=== PATIENT | female | born 2000 | race American Indian/Alaskan Native ===

== ENCOUNTER 2022-05-18 09:05 | Emergency (ER) | payer MEDICAID ==
[2022-05-18 09:35] VITALS: BP 106/67
--- NOTE | 2022-05-18 11:14 | Emergency Department Report ---
Minor Respiratory - HPI Chief Complaint: Sore Throat Stated Complaint: SORE THROAT/EAR PAIN Time Seen by Provider: 05/18/22 11:10 Duration: 2 Days Pain Location: Throat, Ear Severity: mild Minor Respiratory: Yes Sore Throat, Yes Able to Tolerate Fluids, Yes Ear Pain, Yes Sick Contacts, No Rhinorrhea, No Cough, No Hemoptysis, No Chest Pain, No Shortness of Breath, No Fever Other History: Patient is a 22-year-old female that comes to the ER complaining of right ear pain and sore throat for 3 days. She is also requesting routine chlamydia testing. She has no symptoms. No discharge. No dysuria. Normal vital signs. No abdominal pain. No back pain ED Review of Systems ROS: Stated complaint: SORE THROAT/EAR PAIN Other details as noted in HPI Comment: All other systems reviewed and negative ED Past Medical Hx - Past Medical History Previous Medical History?: No - Surgical History Past Surgical History?: No - Family History Family history: no significant - Social History Smoking Status: Never Smoker Substance Use Type: None - Medications Home Medications: Home Medications Medication Instructions Recorded Confirmed Last Taken Type Amoxicillin [Trimox CAP] 500 mg PO BID #20 capsule 05/18/22 Unknown Rx Minor Respiratory Exam - Exam General: Vital signs noted. No distress. Alert and acting appropriately. HEENT: Yes Pharyngeal Erythema, Yes Moist Mucous Membranes, No Pharyngeal Exudates, No Rhinorrhea, No Conjuctival Injection, No Frontal Tenderness, No Maxillary Tenderness Ear: Right TM Erythema, Neither EAC Pain, Neither EAC Discharge Neck: Yes Supple, No Adenopathy Lungs: Yes Good Air Exchange, No Wheezes, No Ronchi, No Stridor, No Cough, No Labored Respirations, No Retractions, No Use of Accessory Muscles, No Other Abnormal Lung Sounds Heart: Yes Regular, No Murmur Abdomen: Yes Normal Bowel Sounds, No Tenderness, No Peritoneal Signs Skin: No Rash, No Edema Neurologic: Alert and oriented, no deficits. Musculoskeletal: Unremarkable. ED Course Vital Signs 05/18/22 09:33 Temperature 98.6 F Pulse Rate 83 Respiratory 16 Rate Blood Pressure 106/67 [Right] O2 Sat by Pulse 100 Oximetry ED Medical Decision Making - Medical Decision Making Vital Signs 05/18/22 09:33 Temperature 98.6 F Pulse Rate 83 Respiratory 16 Rate Blood Pressure 106/67 [Right] O2 Sat by Pulse 100 Oximetry Patient ambulatory, not ill nontoxic. She is taking p.o. Patient will be given referral for routine STD testing. Patient discharged home with discharge plan of care including diet, activity, medications and follow-up. She verbalizes understanding of plan of care - Differential Diagnosis URI Critical care attestation.: If time is entered above; I have spent that time in minutes in the direct care of this critically ill patient, excluding procedure time. ED Disposition Clinical Impression: Otitis media, Pharyngitis Disposition: HOME / SELF CARE / HOMELESS Is pt being admited?: No Does the pt Need Aspirin: No Condition: Stable Instructions: Pharyngitis, Otitis Media, Adult Additional Instructions: Medications as ordered today until gone Motrin or Tylenol for pain Follow-up with PCP next week to make sure you are feeling better Referral below Diet and activity as tolerated Stay well-hydrated with water Referrals below for your routine STD testing Referrals: ANANYA MEYER MD [Staff Physician] - 3-5 Days JEFFERY VALDEZ MD [Staff Physician] - 3-5 Days [facility] [Outside] - 3-5 Days [facility] [Outside] - 3-5 Days Forms: Work/School Release Form(ED) Time of Disposition: 11:15
== END 2022-05-18 11:51 | disposition home or self-care (01) ==
LOC: ED 09:05
DX: J02.9 Acute pharyngitis, unspecified (principal); H92.09 Otalgia, unspecified ear
CPT/HCPCS: 99282